=== PATIENT | female | born 1985 | race Caucasian/White ===

== ENCOUNTER 2025-06-01 08:57 | Emergency (ER) | payer OTHER ==
[~2025-06-01] VITALS: Ht 162.6 cm; Wt 65.8 kg
[2025-06-01] MEDS ORDERED: KETOROLAC TROMETHAMINE 15 MG/ML VIAL ONE (09:33)
[2025-06-01] MEDS: IV NS 0.9% 500 ML BAG IV ONE (09:43)
[2025-06-01 09:44] LABS: PLATELET COUNT (AUTO) 562 K/uL (150-450); RED BLOOD CELL COUNT(AUTO) 4.42 MIL/uL (4.0-5.2); RED CELL DISTRIBUTION WIDTH 16.6 % (11.5-15.0); WHITE BLOOD COUNT (AUTO) 6.1 K/uL (4.3-11.0)
[2025-06-01] MEDS: KETOROLAC TROMETHAMINE 15 MG/ML VIAL IV ONE (10:25)
[2025-06-01 11:05] LABS: CALCIUM, SERUM 9.2 mg/dL (8.5-10.1); CREATININE 0.8 mg/dL (0.6-1.3); SODIUM SERUM 143.0 mmol/L (136-145); UREA NITROGEN, BLOOD 12.0 mg/dL (7-18)
[2025-06-01 13:04] VITALS: BP 127/72; TEMP 98.5; O2SAT 99
== END 2025-06-01 13:04 | disposition home or self-care (01) ==
LOC: ER 08:59
DX: R10.2 Pelvic and perineal pain (principal); O03.4 Incomplete spontaneous abortion without complication; Z3A.00 Weeks of gestation of pregnancy not specified
CPT/HCPCS: 99284; 76856; 85025; 80048; 36415; 84702; 84703 ×2; J7040; A6403; J1885

== ENCOUNTER 2025-08-10 15:37 | Emergency (ER) | payer OTHER ==
[~2025-08-10] VITALS: Ht 160 cm; Wt 68.0 kg
[2025-08-10 17:25] LABS: PLATELET COUNT (AUTO) 402 K/uL (150-450); RED BLOOD CELL COUNT(AUTO) 4.48 MIL/uL (4.0-5.2); RED CELL DISTRIBUTION WIDTH 15.8 % (11.5-15.0); WHITE BLOOD COUNT (AUTO) 7.1 K/uL (4.3-11.0)
[2025-08-10 19:00] VITALS: BP 134/68; TEMP 98.4; O2SAT 99
== END 2025-08-10 19:01 | disposition home or self-care (01) ==
LOC: ER 15:42
DX: O46.91 Antepartum hemorrhage, unspecified, first trimester (principal); R10.20 Pelvic and perineal pain unspecified side; Z32.01 Encounter for pregnancy test, result positive; Z3A.01 Less than 8 weeks gestation of pregnancy
CPT/HCPCS: 36415; 84702-TC; 85025-TC

== ENCOUNTER 2025-08-23 00:42 | Emergency (ER) | payer OTHER ==
[~2025-08-23] VITALS: Ht 160 cm; Wt 65.8 kg
[2025-08-23 01:58] VITALS: TEMP 98.2
[2025-08-23 02:59] LABS: PLATELET COUNT (AUTO) 467 K/uL (150-450); RED BLOOD CELL COUNT(AUTO) 3.90 MIL/uL (4.0-5.2); RED CELL DISTRIBUTION WIDTH 15.8 % (11.5-15.0); WHITE BLOOD COUNT (AUTO) 6.4 K/uL (4.3-11.0)
[2025-08-23 03:04] LABS: CALCIUM, SERUM 9.2 mg/dL (8.5-10.1); CREATININE 0.7 mg/dL (0.6-1.3); SODIUM SERUM 139.0 mmol/L (136-145); UREA NITROGEN, BLOOD 16.0 mg/dL (7-18)
[2025-08-23 03:06] LABS: APPEARANCE,URINE CLEAR (CLEAR); BLOOD, URINE TRACE-INTA Ery/uL (NEGATIVE); LEUKOCYTE ESTERASE ,URINE NEGATIVE (NEGATIVE); NITRITE, URINE POSITIVE (NEGATIVE); UGLUCOSE NEGATIVE (NEGATIVE)
[2025-08-23 03:21] LABS: ADD URINE CULTURE YES; SQUAMOUS EPITHELIAL CELL,UR 0-2 /HPF (None Seen)
[2025-08-23 03:27] LABS: PREGNANCY TEST SERUM QUAN 686.0 mIU/mL (0-6)
[2025-08-23 04:03] VITALS: BP 93/57; O2SAT 98
== END 2025-08-23 04:56 | disposition home or self-care (01) ==
LOC: ER 00:45
DX: O03.9 Complete or unspecified spontaneous abortion without complication (principal); N83.201 Unspecified ovarian cyst, right side; R10.21 Pelvic and perineal pain right side
CPT/HCPCS: 36415; 76856-TC; 80048-TC; 81001; 84702-TC; 85025-TC; 86850-TC; 87086-TC